=== PATIENT | female | born 1955 | race Caucasian/White ===

== ENCOUNTER 2024-07-10 19:37 | Inpatient (IN) ==
--- NOTE | 2024-07-10 19:59 | Emergency Department Note ---
History of Present Illness General Chief complaint: Leg Injury/Pain Stated complaint: CELLULITIS, REDNESS ON LEG Time Seen by Provider: 07/10/24 19:46 History of Present Illness Maximum Pain Intensity: 4 This is a 68-year-old female that presents to the emergency department via private vehicle referred by local [facility] with complaints of "left leg swelling, redness, pain". The patient notes chronic skin discoloration to the lower extremities and this is not new. However, as of last evening notes progressive worsening of left posterior calf erythema, edema and pain. No known trauma or injury. No fevers or chills. No nausea or vomiting. No chest pain or shortness of breath. Pain is worse with movement and palpation, mildly better with rest. No history of blood clot. Home Medications Medication Instructions Recorded Confirmed Type acetaminophen 650 mg 650 mg PO Q12H PRN Pain 07/10/24 07/10/24 History tablet,extended release lisinopril 10 0.5 tab PO DAILY 07/10/24 07/10/24 History mg-hydrochlorothiazide 12.5 mg tablet propranolol 60 mg tablet 60 mg PO QAM 07/10/24 07/10/24 History sumatriptan succinate 50 mg tablet 50 mg PO .SEEATTACHED PRN Migraine 07/10/24 07/10/24 History Headache Allergies Allergy/AdvReac Type Severity Reaction Status Date / Time No Known Allergies Allergy nka Verified 07/10/24 20:00 Past Med/Surg History Problem List (Updated 07/11/24 @ 00:45 by Cleveland Mosher PA-C) Leukocytosis (Acute) Cellulitis of left lower extremity (Acute) Social History Smoking Status: Never smoker Preferred Language: Vietnamese Feels Safe at Home: Yes Review of Systems A total of 10 systems reviewed and were otherwise negative Physical Exam Vital Signs Vital Signs - 24 hr 07/10/24 19:42 07/10/24 20:16 07/10/24 20:18 Temperature 36.3 C L Temperature Source Temporal Artery Scan Pulse Rate 108 H Pulse Rate from SpO2 Sensor Respiratory Rate 18 Respiratory Effort / Characteristics Non-Labored Spontaneous Respiratory Depth Normal Respiratory Pattern Regular Blood Pressure 158/83 H 109/66 Blood Pressure Mean 108 72 Blood Pressure Position Sitting Pulse Oximetry 98 97 Oxygen Delivery Method Room Air Room Air Sepsis Recent Fever Within 48 Hours No Sepsis New/Unexplained Change in Mental Status N/A Sepsis Action Taken by Nursing No Action Required 07/10/24 20:29 07/10/24 20:31 07/10/24 20:31 Temperature Temperature Source Pulse Rate 108 H Pulse Rate from SpO2 Sensor Respiratory Rate Respiratory Effort / Characteristics Respiratory Depth Respiratory Pattern Blood Pressure 122/74 122/74 Blood Pressure Mean 99 99 Blood Pressure Position Pulse Oximetry Oxygen Delivery Method Sepsis Recent Fever Within 48 Hours Sepsis New/Unexplained Change in Mental Status Sepsis Action Taken by Nursing 07/10/24 20:31 07/10/24 20:31 07/10/24 20:31 Temperature Temperature Source Pulse Rate Pulse Rate from SpO2 Sensor Respiratory Rate Respiratory Effort / Characteristics Respiratory Depth Respiratory Pattern Blood Pressure 122/74 122/74 122/74 Blood Pressure Mean 99 99 99 Blood Pressure Position Pulse Oximetry Oxygen Delivery Method Sepsis Recent Fever Within 48 Hours Sepsis New/Unexplained Change in Mental Status Sepsis Action Taken by Nursing 07/10/24 20:31 07/10/24 20:31 07/10/24 20:31 Temperature Temperature Source Pulse Rate Pulse Rate from SpO2 Sensor Respiratory Rate Respiratory Effort / Characteristics Respiratory Depth Respiratory Pattern Blood Pressure 122/74 122/74 122/74 Blood Pressure Mean 99 99 99 Blood Pressure Position Pulse Oximetry Oxygen Delivery Method Sepsis Recent Fever Within 48 Hours Sepsis New/Unexplained Change in Mental Status Sepsis Action Taken by Nursing 07/10/24 20:31 07/10/24 20:31 07/10/24 20:31 Temperature Temperature Source Pulse Rate Pulse Rate from SpO2 Sensor Respiratory Rate Respiratory Effort / Characteristics Respiratory Depth Respiratory Pattern Blood Pressure 122/74 122/74 122/74 Blood Pressure Mean 99 99 99 Blood Pressure Position Pulse Oximetry Oxygen Delivery Method Sepsis Recent Fever Within 48 Hours Sepsis New/Unexplained Change in Mental Status Sepsis Action Taken by Nursing 07/10/24 20:31 07/10/24 20:45 07/10/24 21:54 Temperature Temperature Source Pulse Rate 105 H 101 H Pulse Rate from SpO2 Sensor 105 H 100 H Respiratory Rate 20 18 Respiratory Effort / Characteristics Respiratory Depth Respiratory Pattern Blood Pressure 122/74 Blood Pressure Mean 99 Blood Pressure Position Pulse Oximetry 98 98 Oxygen Delivery Method Sepsis Recent Fever Within 48 Hours Sepsis New/Unexplained Change in Mental Status Sepsis Action Taken by Nursing 07/10/24 22:00 07/10/24 22:30 07/10/24 23:00 Temperature Temperature Source Pulse Rate 110 H 103 H 103 H Pulse Rate from SpO2 Sensor 104 H 102 H Respiratory Rate 17 19 23 Respiratory Effort / Characteristics Respiratory Depth Respiratory Pattern Blood Pressure 103/78 127/79 130/82 Blood Pressure Mean 86 95 98 Blood Pressure Position Pulse Oximetry 100 97 99 Oxygen Delivery Method Room Air Room Air Room Air Sepsis Recent Fever Within 48 Hours Sepsis New/Unexplained Change in Mental Status Sepsis Action Taken by Nursing 07/10/24 23:01 07/10/24 23:15 07/10/24 23:30 Temperature Temperature Source Pulse Rate 99 H 99 H Pulse Rate from SpO2 Sensor 100 H 100 H Respiratory Rate 21 16 Respiratory Effort / Characteristics Respiratory Depth Respiratory Pattern Blood Pressure 130/82 Blood Pressure Mean 104 Blood Pressure Position Pulse Oximetry 97 98 Oxygen Delivery Method Room Air Room Air Sepsis Recent Fever Within 48 Hours Sepsis New/Unexplained Change in Mental Status Sepsis Action Taken by Nursing 07/11/24 00:00 07/11/24 00:15 Temperature Temperature Source Pulse Rate 100 H Pulse Rate from SpO2 Sensor Respiratory Rate 21 Respiratory Effort / Characteristics Respiratory Depth Respiratory Pattern Blood Pressure 132/81 Blood Pressure Mean 97 Blood Pressure Position Pulse Oximetry 96 Oxygen Delivery Method Room Air Room Air Sepsis Recent Fever Within 48 Hours Sepsis New/Unexplained Change in Mental Status Sepsis Action Taken by Nursing VITAL SIGNS - Vital signs and nursing notes were reviewed. Mother tachycardic at 108, otherwise stable and afebrile. GENERAL - 68-year-old female appearing her stated age who is in no acute distress. Communicates well with provider and answers questions appropriately. SKIN -chronic light brown discoloration to the bilateral lower extremities noted. However on the left lower extremity, posterior aspect there is erythema noted that tracks proximally into the mid and proximal left calf region. This area is edematous and increased warmth compared to the remainder of the extremity in the right lower extremity. No wounds. No fluctuance or crepitus. HEAD - NC/AT. EYES - PERRL with EOMI bilaterally. Sclera anicteric. EARS - No deformities of external structures noted on gross examination bilaterally. NOSE - Midline and without cyanosis. No epistaxis or purulent drainage noted. MOUTH/OROPHARYNX - Without perioral cyanosis. NECK - Neck with FROM. No nuchal rigidity. LUNGS - CTA CARDIAC - RRR EXTREMITIES - No clubbing or peripheral cyanosis. Skin as above. Left calf tender. There is no palpable cord. +5/5 strength noted in UE/LE bilaterally. bilateral dorsalis pedis pulses within normal limits. NEUROLOGIC - Cranial nerves II through XII grossly intact. PSYCH -alert, oriented and pleasant on exam Course Administered Medications Discontinued Medications Ceftriaxone Sodium (Rocephin) 2,000 mg in 50 mls @ 100 mls/hr IV NOW STA Stop: 07/10/24 22:09 Last Infusion: 07/10/24 22:47 Dose: Infused Documented By: Admin: 07/10/24 22:00 Dose: 100 mls/hr Documented By: EMANUEL Vancomycin HCl 1,500 mg/ (Sodium Chloride) 530 mls @ 200 mls/hr IV NOW ONE Stop: 07/11/24 00:18 Last Admin: 07/10/24 22:58 Dose: 200 mls/hr Documented By: EMANUEL Medical Decision Making Laboratory Data 07/10/24 20:04 07/10/24 20:04 Lab Results 07/10/24 Range/Units 20:04 WBC 14.98 H (4.8-10.8) K/ul RBC 4.56 (4.20-5.40) M/uL Hgb 13.5 (12.0-16.0) g/dl Hct 40.7 (37.0-47.0) % MCV 89.3 (80.0-100.0) fL MCH 29.6 (25.0-34.0) pg MCHC 33.2 (32.0-36.0) g/dL RDW Std Deviation 42.2 (36.4-46.3) fL RDW Coeff of Sandra 12.9 (11.5-14.5) % Plt Count 271 (130-400) K/uL MPV 8.7 L (9.4-12.4) fL Immature Gran % (Auto) 0.4 % Neut % (Auto) 75.1 % Lymph % (Auto) 13.2 % [place] % (Auto) 8.2 % Eos % (Auto) 2.8 % Baso % (Auto) 0.3 % Neut # (Auto) 11.24 H (1.40-6.50) K/uL Lymph # (Auto) 1.98 (1.20-3.40) K/uL [place] # (Auto) 1.23 H (0.11-0.59) K/uL Eos # (Auto) 0.42 (0.00-0.50) K/uL Baso # (Auto) 0.05 (0.00-0.20) K/uL Immature Gran # (Auto) 0.06 (0.01-0.20) K/uL PT 11.0 (9.0-12.0) Seconds INR 1.0 (0.9-1.1) APTT 25 (21-31) Seconds PTT Ratio 0.9 Sodium 138 (136-145) mmol/L Potassium 3.9 (3.5-5.1) mmol/L Chloride 101 (98-107) mmol/L Carbon Dioxide 28 (21-32) mmol/L Anion Gap 9 (3-11) BUN 13 (6-23) mg/dl Creatinine 0.77 (0.6-1.2) mg/dl Est Cr Clr Drug Dosing 73.3 ml/min eGFR 85.02 BUN/Creatinine Ratio 16.9 (10-20) Glucose 110 H (70-99(Fasting)) mg/dl Calcium 9.5 (8.6-10.3) mg/dl Total Bilirubin 0.7 (0.2-1.0) mg/dl AST 21 (13-39) U/L ALT 13 (7-52) U/L Alkaline Phosphatase 100 (34-104) U/L Total Protein 7.1 (6.0-8.3) gm/dl Albumin 4.4 (3.4-5.0) gm/dl Globulin 2.7 (2.5-4.0) gm/dl Albumin/Globulin Ratio 1.6 (0.9-2) Procalcitonin < 0.02 (0-0.5) ng/ml Imaging Data Radiologist's Impression: Venous Doppler Study 07/10/24 19:54 Exam(s): US VENOUS LEFT LOWER EXTREMITY EXAM: US Duplex Left Lower Extremity Veins CLINICAL HISTORY: Reason for exam: L leg erythema, edema, pain. TECHNIQUE: Real-time duplex ultrasound scan of the left lower extremity veins integrating B-mode two-dimensional vascular structure, Doppler spectral analysis, color flow Doppler imaging and compression. COMPARISON: No relevant prior studies available. FINDINGS: Deep veins: Unremarkable. No DVT in the visualized common femoral, femoral, proximal deep femoral or popliteal veins. The veins demonstrate normal color flow, are normally compressible, with normal phasic flow and/or augmentation response. Superficial veins: Unremarkable. No thrombus in the visualized great saphenous vein. Soft tissues: No acute findings. IMPRESSION: No evidence of acute DVT. Electronically signed by: Yulia Bill M.D. 07/10/24 23:37 PM MDM Narrative Patient was seen and evaluated as above in room B10. Review was performed of triage nursing notes and vital signs. Patient presents to us today for evaluation of left lower extremity erythema, edema and pain. There is erythema and edema to the left posterior calf. No evidence of neurovascular compromise. Options of care were discussed with the patient. She is mildly tachycardic on arrival, leukocytosis 14.98. No anemia. Coags normal. No emergent metabolic disturbance. Procalcitonin negative. Blood culture pending. Doppler study negative for DVT. There is an enlarged lymph node in the left groin per my interpretation. I do suspect cellulitis. IV ceftriaxone plus vancomycin ordered. I do believe that hospitalization is required at this time noting the patient's area of involvement of the cellulitis, tachycardia, leukocytosis, lymphadenopathy noted on ultrasound further indicating infection. Case discussed with the hospitalist service. Please refer to further documentation regarding her stay In the evaluation and treatment of this patient the following differential diagnoses were entertained: Cellulitis, abscess, necrotizing fasciitis, DVT, sprain, strain, among others Impression & Plan Cellulitis of left lower extremity, Leukocytosis Discharge Plan Visit Data Chief Complaint: Leg Injury/Pain Stated Complaint: CELLULITIS, REDNESS ON LEG ED Provider: Willy Paz ED Midlevel Provider: Cleveland Mosher Discharge Problem: Cellulitis of left lower extremity, Leukocytosis Patient Disposition: Admitted As Inpatient Condition: Good Discharge Instructions Interventions: ED Discharge Assessment Last Done: 07/11/24 00:15
[2024-07-10 20:20] LABS: Basophils # (auto) 0.05 K/uL (0.00-0.20); Basophils % (auto) 0.3 %; Eosinophils # (auto) 0.42 K/uL (0.00-0.50); Eosinophils % (auto) 2.8 %; Hematocrit (blood only) 40.7 % (37.0-47.0); Hemoglobin 13.5 g/dl (12.0-16.0); Immature Granulocytes # (auto) 0.06 K/uL (0.01-0.20); Immature Granulocytes % (auto) 0.4 %; Lymphocytes # (auto) 1.98 K/uL (1.20-3.40); Lymphocytes % (auto) 13.2 %; Mean Corpuscular Hemoglobin 29.6 pg (25.0-34.0); Mean Corpuscular Hgb Conc 33.2 g/dL (32.0-36.0); Mean Corpuscular Volume 89.3 fL (80.0-100.0); Mean Platelet Volume 8.7 fL (9.4-12.4); Monocytes # (auto) 1.23 K/uL (0.11-0.59); Monocytes % (auto) 8.2 %; Neutrophils # (auto) 11.24 K/uL (1.40-6.50); Neutrophils % (auto) 75.1 %; Platelet Count 271 K/uL (130-400); RDW Coefficient of Variation 12.9 % (11.5-14.5); RDW Standard Deviation 42.2 fL (36.4-46.3); Red Blood Count 4.56 M/uL (4.20-5.40); White Blood Count 14.98 K/ul (4.8-10.8)
[2024-07-10 20:36] LABS: Albumin Globulin Ratio 1.6 (0.9-2); Albumin Level 4.4 gm/dl (3.4-5.0); BUN Creatinine Ratio 16.9 (10-20); Bilirubin,Total 0.7 mg/dl (0.2-1.0); Calcium 9.5 mg/dl (8.6-10.3); Creatinine Clr Calc Pharmacy 73.3 ml/min; Globulin 2.7 gm/dl (2.5-4.0); Potassium 3.9 mmol/L (3.5-5.1); Total Protein 7.1 gm/dl (6.0-8.3)
[2024-07-10 20:47] LABS: Partial Thromboplastin Ratio 0.9; Partial Thromboplastin Time 25 Seconds (21-31)
[2024-07-10] MEDS ORDERED: VANCOMYCIN CONSULT ACTIVE PRN (21:40)
[2024-07-10] MEDS: cefTRIAXone SODIUM 2,000 MG/50 ML BAG IV STA (22:00)
[2024-07-10] MEDS: VANCOMYCIN HCL 1,500 MG in SODIUM CHLORIDE 0.9% 500 ML IV ONE (22:58)
--- NOTE | 2024-07-10 23:38 | Ultrasound Report ---
Exam(s): US VENOUS LEFT LOWER EXTREMITY EXAM: US Duplex Left Lower Extremity Veins CLINICAL HISTORY: Reason for exam: L leg erythema, edema, pain. TECHNIQUE: Real-time duplex ultrasound scan of the left lower extremity veins integrating B-mode two-dimensional vascular structure, Doppler spectral analysis, color flow Doppler imaging and compression. COMPARISON: No relevant prior studies available. FINDINGS: Deep veins: Unremarkable. No DVT in the visualized common femoral, femoral, proximal deep femoral or popliteal veins. The veins demonstrate normal color flow, are normally compressible, with normal phasic flow and/or augmentation response. Superficial veins: Unremarkable. No thrombus in the visualized great saphenous vein. Soft tissues: No acute findings. IMPRESSION: No evidence of acute DVT. Electronically signed by: Yulia Bill M.D. 07/10/24 23:37 PM
--- NOTE | 2024-07-11 00:11 | History & Physical Report ---
Date of Service July 10, 2024 Assessment & Plan (1) Cellulitis of left lower extremity: Plan: 68-year-old female with past medical history significant for restrictive lung disease due to kyphoscoliosis, stasis dermatitis of both legs, hypertension, history of benign neoplasm of colon, polymyalgia rheumatica, arthritis of both hips, history of migraine, generalized anxiety disorder presents with redness of the left lower extremity. Patient states last night she noticed redness in the left calf region. It was warm to touch. And has some pain in the left leg. Denies any fevers. Denies any chest pain or shortness of breath. No cough. No runny nose or sore throat. No headache. No abdominal pain. No nausea. Normal bowel and bladder movements. Hemodynamics are okay. Patient says she has history of cellulitis in the past. Cellulitis of left lower extremity Doppler negative for DVT ER empirically started Vanco and Rocephin which will be continued Will monitor for response. Hypertension Continue home medications Will monitor DVT prophylaxis Lovenox Disposition Medical floor Full code History of Present Illness Chief Complaint: Left leg cellulitis Primary Care Provider: Lori Cristina MD 68-year-old female with past medical history significant for restrictive lung di sease due to kyphoscoliosis, stasis dermatitis of both legs, hypertension, history of benign neoplasm of colon, polymyalgia rheumatica, arthritis of both hips, history of migraine, generalized anxiety disorder presents with redness of the left lower extremity. Patient states last night she noticed redness in the left calf region. It was warm to touch. And has some pain in the left leg. Denies any fevers. Denies any chest pain or shortness of breath. No cough. No runny nose or sore throat. No headache. No abdominal pain. No nausea. Normal bowel and bladder movements. Hemodynamics are okay. Patient says she has history of cellulitis in the past. Past medical history. As mentioned above Past surgical history. Colonoscopy. Colonoscopy with biopsy. EGD. Spine surgery. Social history. No smoking. No alcohol use. No drug use. Family history. Paternal grandfather had cancer. Mother had diabetes. Hypertension. Alzheimer's disease. Father had LA. Hypertension. Brother has hypertension. Sister has diabetes. Sister has hypertension. Allergies Allergy/AdvReac Type Severity Reaction Status Date / Time No Known Allergies Allergy nka Verified 07/10/24 20:00 Home Medications Medication Instructions Recorded Confirmed Type acetaminophen 650 mg 650 mg PO Q12H PRN Pain 07/10/24 07/10/24 History tablet,extended release lisinopril 10 0.5 tab PO DAILY 07/10/24 07/10/24 History mg-hydrochlorothiazide 12.5 mg tablet propranolol 60 mg tablet 60 mg PO QAM 07/10/24 07/10/24 History sumatriptan succinate 50 mg tablet 50 mg PO .SEEATTACHED PRN Migraine 07/10/24 07/10/24 History Headache Past Med/Surg History Problem List (Updated 07/11/24 @ 00:45 by Cleveland Mosher PA-C) Leukocytosis (Acute) Cellulitis of left lower extremity (Acute) Social History Smoking Status: Never smoker Second Hand Exposure: No; Do You Dip or Chew Tobacco: No; Tobacco Cessation Education Requested by Patient: No Hx Alcohol Use: No Hx Substance Use: No Preferred Language: Belarusian Communication Ability: Effective Childcare Worker Required: No Beliefs That Will Affect Care: None Current Living Situation: Alone Other Information That Helps Us Care for You: No Feels Safe at Home: Yes Safety Concerns: Feels Safe At This Time Assistive Devices: None Review of Systems Review of Systems: All systems reviewed & are unremarkable except as noted in HPI & below Physical Exam Physical Exam: General- Not in distress Head- atraumatic Eyes- PERRL. ENT- oropharynx clear Neck- supple, no JVD. Lungs- clear to auscultation no wheezing or crackles Heart- regular rate and rhythm; no murmur, no gallop. Abdomen- normal bowel sounds, soft, nontender, no distension Extremities- b/l lower extremity chronic skin changes seen. left posterior leg erythematous and warm to palpation Neuro- alert, oriented PERRL, no facial palsy; no dysarthria; moves extremities Results & Data Results & Data Vital Signs (Past 12 Hours) Vital Signs Temp Pulse Resp BP Pulse Ox O2 Del Method 07/10/24 23:00 103 H 23 130/82 99 Room Air 07/10/24 22:30 103 H 19 127/79 97 Room Air 07/10/24 22:00 110 H 17 103/78 100 Room Air 07/10/24 21:54 101 H 18 98 07/10/24 20:45 105 H 20 98 07/10/24 20:31 122/74 07/10/24 20:31 122/74 07/10/24 20:31 122/74 07/10/24 20:31 122/74 07/10/24 20:31 122/74 07/10/24 20:31 122/74 07/10/24 20:31 122/74 07/10/24 20:31 122/74 07/10/24 20:31 122/74 07/10/24 20:31 122/74 07/10/24 20:31 122/74 07/10/24 20:31 122/74 07/10/24 20:29 108 H 07/10/24 20:18 109/66 07/10/24 20:16 97 Room Air 07/10/24 19:42 36.3 C L 108 H 18 158/83 H 98 Room Air Diagnostic Findings Laboratory Results WBC 14.98 K/ul (4.8-10.8) H 07/10/24 20:04 RBC 4.56 M/uL (4.20-5.40) 07/10/24 20:04 Hgb 13.5 g/dl (12.0-16.0) 07/10/24 20:04 Hct 40.7 % (37.0-47.0) 07/10/24 20:04 MCV 89.3 fL (80.0-100.0) 07/10/24 20:04 MCH 29.6 pg (25.0-34.0) 07/10/24 20:04 MCHC 33.2 g/dL (32.0-36.0) 07/10/24 20:04 RDW Std Deviation 42.2 fL (36.4-46.3) 07/10/24 20:04 RDW Coeff of Sandra 12.9 % (11.5-14.5) 07/10/24 20:04 Plt Count 271 K/uL (130-400) 07/10/24 20:04 MPV 8.7 fL (9.4-12.4) L 07/10/24 20:04 Immature Gran % (Auto) 0.4 % 07/10/24 20:04 Neut % (Auto) 75.1 % 07/10/24 20:04 Lymph % (Auto) 13.2 % 07/10/24 20:04 [place] % (Auto) 8.2 % 07/10/24 20:04 Eos % (Auto) 2.8 % 07/10/24 20:04 Baso % (Auto) 0.3 % 07/10/24 20:04 Neut # (Auto) 11.24 K/uL (1.40-6.50) H 07/10/24 20:04 Lymph # (Auto) 1.98 K/uL (1.20-3.40) 07/10/24 20:04 [place] # (Auto) 1.23 K/uL (0.11-0.59) H 07/10/24 20:04 Eos # (Auto) 0.42 K/uL (0.00-0.50) 07/10/24 20:04 Baso # (Auto) 0.05 K/uL (0.00-0.20) 07/10/24 20:04 Immature Gran # (Auto) 0.06 K/uL (0.01-0.20) 07/10/24 20:04 PT 11.0 Seconds (9.0-12.0) 07/10/24 20:04 INR 1.0 (0.9-1.1) 07/10/24 20:04 APTT 25 Seconds (21-31) 07/10/24 20:04 PTT Ratio 0.9 07/10/24 20:04 Sodium 138 mmol/L (136-145) 07/10/24 20:04 Potassium 3.9 mmol/L (3.5-5.1) 07/10/24 20: Chloride 101 mmol/L (98-107) 07/10/24 20:04 Carbon Dioxide 28 mmol/L (21-32) 07/10/24 20:04 Anion Gap 9 (3-11) 07/10/24 20:04 BUN 13 mg/dl (6-23) 07/10/24 20:04 Creatinine 0.77 mg/dl (0.6-1.2) 07/10/24 20:04 Est Cr Clr Drug Dosing 73.3 ml/min 07/10/24 20:04 eGFR 85.02 07/10/24 20:04 BUN/Creatinine Ratio 16.9 (10-20) 07/10/24 20:04 Glucose 110 mg/dl (70-99(Fasting)) H 07/10/24 20:04 Calcium 9.5 mg/dl (8.6-10.3) 07/10/24 20:04 Total Bilirubin 0.7 mg/dl (0.2-1.0) 07/10/24 20:04 AST 21 U/L (13-39) 07/10/24 20:04 ALT 13 U/L (7-52) 07/10/24 20:04 Alkaline Phosphatase 100 U/L (34-104) 07/10/24 20:04 Total Protein 7.1 gm/dl (6.0-8.3) 07/10/24 20:04 Albumin 4.4 gm/dl (3.4-5.0) 07/10/24 20:04 Globulin 2.7 gm/dl (2.5-4.0) 07/10/24 20:04 Albumin/Globulin Ratio 1.6 (0.9-2) 07/10/24 20:04 Procalcitonin < 0.02 ng/ml (0-0.5) 07/10/24 20:04 Impressions Venous Doppler Study 07/10/24 19:54 Exam(s): US VENOUS LEFT LOWER EXTREMITY EXAM: US Duplex Left Lower Extremity Veins CLINICAL HISTORY: Reason for exam: L leg erythema, edema, pain. TECHNIQUE: Real-time duplex ultrasound scan of the left lower extremity veins integrating B-mode two-dimensional vascular structure, Doppler spectral analysis, color flow Doppler imaging and compression. COMPARISON: No relevant prior studies available. FINDINGS: Deep veins: Unremarkable. No DVT in the visualized common femoral, femoral, proximal deep femoral or popliteal veins. The veins demonstrate normal color flow, are normally compressible, with normal phasic flow and/or augmentation response. Superficial veins: Unremarkable. No thrombus in the visualized great saphenous vein. Soft tissues: No acute findings. IMPRESSION: No evidence of acute DVT. Electronically signed by: Yulia Bill M.D. 07/10/24 23:37 PM Code Status & VTE Plan VTE Prophylaxis Plan VTE Prophylaxis will be ordered: Yes
--- NOTE | 2024-07-11 00:28 | Emergency Department Note ---
ED Visit Note I was consulted by the Advanced Practice Provider, Cleveland Mosher PA-C. I personally made/approved the management plan and take responsibility for the patient management. I performed a substantive portion of the visit. This includes the aspects of: -History/Physical/Personally seeing the patient -MDM .
[2024-07-11] MEDS ORDERED: POLYETHYLENE (MIRALAX) 17 GM PACK PO PRN (00:53)
[2024-07-11] MEDS: SODIUM CHLORIDE 0.9% 1,000 ML IV SCH (02:01)
[2024-07-11] MEDS: ENOXAPARIN INJ 40 MG/0.4 ML SYR SQ SCH (02:46)
[2024-07-11] MEDS: VANCOMYCIN HCL 1,000 MG/270 ML BAG IV SCH (05:50)
[2024-07-11 05:52] LABS: Basophils # (auto) 0.03 K/uL (0.00-0.20); Basophils % (auto) 0.3 %; Eosinophils # (auto) 0.22 K/uL (0.00-0.50); Eosinophils % (auto) 2.4 %; Hematocrit (blood only) 33.7 % (37.0-47.0); Hemoglobin 11.2 g/dl (12.0-16.0); Immature Granulocytes # (auto) 0.03 K/uL (0.01-0.20); Immature Granulocytes % (auto) 0.3 %; Lymphocytes % (auto) 18.5 %; Mean Corpuscular Hemoglobin 29.5 pg (25.0-34.0); Mean Corpuscular Hgb Conc 33.2 g/dL (32.0-36.0); Mean Corpuscular Volume 88.7 fL (80.0-100.0); Mean Platelet Volume 8.7 fL (9.4-12.4); Monocytes # (auto) 0.77 K/uL (0.11-0.59); Monocytes % (auto) 8.4 %; Neutrophils # (auto) 6.45 K/uL (1.40-6.50); Neutrophils % (auto) 70.1 %; Platelet Count 188 K/uL (130-400); RDW Coefficient of Variation 12.9 % (11.5-14.5); RDW Standard Deviation 42.1 fL (36.4-46.3)
[2024-07-11 06:10] LABS: BUN Creatinine Ratio 17.2 (10-20); Calcium 8.4 mg/dl (8.6-10.3); Creatinine Clr Calc Pharmacy 97.3 ml/min; Magnesium 1.7 mg/dl (1.7-2.4); Potassium 3.3 mmol/L (3.5-5.1)
[2024-07-11] MEDS: ACETAMINOPHEN 325 MG TAB PO PRN (07:25)
[2024-07-11] MEDS: POTASSIUM CHLORIDE CRTAB 20 MEQ TABCR PO STA (07:25)
[2024-07-11] MEDS: PROPRANOLOL HCL 20 MG TAB PO SCH (07:26)
--- NOTE | 2024-07-11 07:57 | Hospitalist Progress Note ---
Date of Service July 11, 2024 Assessment & Plan (1) Cellulitis of left lower extremity: Plan: 68 yo F with past medical history significant for restrictive lung disease due to kyphoscoliosis, stasis dermatitis of both legs, hypertension, history of benign neoplasm of colon, polymyalgia rheumatica, arthritis of both hips, history of migraine, generalized anxiety disorder presents with redness of the left lower extremity. Patient states last night she noticed redness in the left calf region. It was warm to touch. And has some pain in the left leg. Denies any fevers. Denies any chest pain or shortness of breath. No cough. No runny nose or sore throat. No headache. No abdominal pain. No nausea. Normal bowel and bladder movements. Hemodynamics are okay. Patient says she has history of cellulitis in the past. Cellulitis of left lower extremity Doppler negative for DVT ER empirically started Vanco and Rocephin which will be continued WBC down to 9K today, monitor CBC Will monitor for response. Discussed w/ RN -will pallavi the area of erythema to monitor closely Hypertension Continue home propranolol - hold lisinopril- HCTZ for now Will monitor Hypokalemia, Hypomagnesemia - replace K and Mag, and monitor DVT prophylaxis Lovenox Disposition Medical floor Full code Admission and Anticipated Discharge Date Admission Date: July 10, 2024 Subjective Pt seen in follow up of LE cellulitis Lying in bed in [facility] denies fever, chills, chest pain, shortness of breath pt is a poor historian, not clear if leg feels much improved Discussed w/ RN - will pallavi the area of erythema so we can monitor more closely Review of Systems Review of Systems: All systems reviewed & are unremarkable except as noted in Subjective Physical Exam Physical Exam: General- WD/WN F in NAD Head- atraumatic Eyes- PERRL. Neck- supple, no JVD. Lungs- clear to auscultation no wheezing or crackles Heart- regular rate and rhythm; no murmur Abdomen- normal bowel sounds, soft, nontender, no distension Extremities- b/l lower extremity chronic skin changes seen. left posterior leg erythematous and warm to palpation Neuro- alert, oriented PERRL, no facial palsy; no dysarthria; moves extremities Results & Data Results & Data Vital Signs (Past 12 Hours) Vital Signs Temp Pulse Pulse Resp BP BP Pulse Ox 07/11/24 07:45 36.8 C 100 H 16 123/70 95 07/11/24 02:50 36.5 C 16 114/71 99 07/11/24 00:53 36.5 C 16 114/71 99 07/11/24 00:15 07/11/24 00:00 100 H 21 132/81 96 07/10/24 23:30 99 H 16 98 07/10/24 23:15 99 H 21 97 07/10/24 23:01 130/82 07/10/24 23:00 103 H 23 130/82 99 07/10/24 22:30 103 H 19 127/79 97 07/10/24 22:00 110 H 17 103/78 100 07/10/24 21:54 101 H 18 98 07/10/24 20:45 105 H 20 98 07/10/24 20:31 122/74 07/10/24 20:31 122/74 07/10/24 20:31 122/74 07/10/24 20:31 122/74 07/10/24 20:31 122/74 07/10/24 20:31 122/74 07/10/24 20:31 122/74 07/10/24 20:31 122/74 07/10/24 20:31 122/74 07/10/24 20:31 122/74 07/10/24 20:31 122/74 07/10/24 20:31 122/74 07/10/24 20:29 108 H 07/10/24 20:18 109/66 07/10/24 20:16 97 O2 Del Method 07/11/24 07:45 Room Air 07/11/24 02:50 Room Air 07/11/24 00:53 Room Air 07/11/24 00:15 Room Air 07/11/24 00:00 Room Air 07/10/24 23:30 Room Air 07/10/24 23:15 Room Air 07/10/24 23:01 07/10/24 23:00 Room Air 07/10/24 22:30 Room Air 07/10/24 22:00 Room Air 07/10/24 21:54 07/10/24 20:45 07/10/24 20:31 07/10/24 20:31 07/10/24 20:31 07/10/24 20:31 07/10/24 20:31 07/10/24 20:31 07/10/24 20:31 07/10/24 20:31 07/10/24 20:31 07/10/24 20:31 07/10/24 20:31 07/10/24 20:31 07/10/24 20:29 07/10/24 20:18 07/10/24 20:16 Room Air Laboratory Results 07/11/24 07/10/24 Range/Units 05:36 20:04 WBC 9.20 14.98 H (4.8-10.8) K/ul RBC 3.80 L 4.56 (4.20-5.40) M/uL Hgb 11.2 L 13.5 (12.0-16.0) g/dl Hct 33.7 L 40.7 (37.0-47.0) % MCV 88.7 89.3 (80.0-100.0) fL MCH 29.5 29.6 (25.0-34.0) pg MCHC 33.2 33.2 (32.0-36.0) g/dL RDW Std Deviation 42.1 42.2 (36.4-46.3) fL RDW Coeff of Sandra 12.9 12.9 (11.5-14.5) % Plt Count 188 271 (130-400) K/uL MPV 8.7 L 8.7 L (9.4-12.4) fL Immature Gran % (Auto) 0.3 0.4 % Neut % (Auto) 70.1 75.1 % Lymph % (Auto) 18.5 13.2 % [place] % (Auto) 8.4 8.2 % Eos % (Auto) 2.4 2.8 % Baso % (Auto) 0.3 0.3 % Neut # (Auto) 6.45 11.24 H (1.40-6.50) K/uL Lymph # (Auto) 1.70 1.98 (1.20-3.40) K/uL [place] # (Auto) 0.77 H 1.23 H (0.11-0.59) K/uL Eos # (Auto) 0.22 0.42 (0.00-0.50) K/uL Baso # (Auto) 0.03 0.05 (0.00-0.20) K/uL Immature Gran # (Auto) 0.03 0.06 (0.01-0.20) K/uL PT 11.0 (9.0-12.0) Seconds INR 1.0 (0.9-1.1) APTT 25 (21-31) Seconds PTT Ratio 0.9 Sodium 137 138 (136-145) mmol/L Potassium 3.3 L 3.9 (3.5-5.1) mmol/L Chloride 109 H 101 (98-107) mmol/L Carbon Dioxide 27 28 (21-32) mmol/L Anion Gap 1 L 9 (3-11) BUN 10 13 (6-23) mg/dl Creatinine 0.58 L 0.77 (0.6-1.2) mg/dl Est Cr Clr Drug Dosing 97.3 73.3 ml/min eGFR 99.74 85.02 BUN/Creatinine Ratio 17.2 16.9 (10-20) Glucose 93 110 H (70-99(Fasting)) mg/dl Calcium 8.4 L 9.5 (8.6-10.3) mg/dl Magnesium 1.7 (1.7-2.4) mg/dl Total Bilirubin 0.7 (0.2-1.0) mg/dl AST 21 (13-39) U/L ALT 13 (7-52) U/L Alkaline Phosphatase 100 (34-104) U/L Total Protein 7.1 (6.0-8.3) gm/dl Albumin 4.4 (3.4-5.0) gm/dl Globulin 2.7 (2.5-4.0) gm/dl Albumin/Globulin Ratio 1.6 (0.9-2) Procalcitonin < 0.02 (0-0.5) ng/ml Medications Administered Current Inpatient Medications Acetaminophen (Acetaminophen 325 Mg Tab) 650 mg PO Q4H PRN PRN Reason: pain/fever Stop: 08/10/24 00:52 Last Admin: 07/11/24 07:25 Dose: 650 mg Enoxaparin Sodium (Enoxaparin Inj 40 Mg/0.4 Ml Syr) 40 mg SQ PM KAREN Stop: 08/10/24 00:52 Last Admin: 07/11/24 02:46 Dose: 40 mg Lisinopril/HCTZ (Lisinopril/Hctz 5mg Tab) 0.5 tab PO DAILY [facility] Stop: 08/10/24 08:59 Sodium Chloride (Nss) 1,000 mls @ 80 mls/hr IV .[id number] KAREN Stop: 07/11/24 13:22 Last Admin: 07/11/24 02:01 Dose: 80 mls/hr Ceftriaxone Sodium (Rocephin) 2,000 mg in 50 mls @ 100 mls/hr IV Q24H KAREN Stop: 07/18/24 20:59 Vancomycin HCl (Vancomycin Hcl) 1,000 mg in 270 mls @ 200 mls/hr IV Q12H [facility] Stop: 07/18/24 05:59 Last Infusion: 07/11/24 07:14 Dose: Infused Miscellaneous Information (Vancomycin Consult Active) 1 each N/A UD PRN PRN Reason: Consult Stop: 08/09/24 21:39 Polyethylene Glycol (Polyethylene (Miralax) 17 Gm Pack) 17 gm PO DAILY PRN PRN Reason: Constipation Stop: 08/10/24 00:52 Propranolol HCl (Propranolol Hcl 20 Mg Tab) 60 mg PO QAM [facility] Stop: 08/10/24 08:59 Last Admin: 07/11/24 07:26 Dose: 60 mg
--- OUTSIDE RECORDS SUMMARY | 2024-07-11 07:58 | External Medical Summary | Summary of Care ---
Author Name Unknown Organization [facility] Address [address] [place] [address] Phone [phone] Care Team Providers Care Certified Ophthalmic Technician Name Role Phone Lori Cristina MD Primary Care Provider Reason for Visit * Reason Onset Date Comments Health Maintenance 07/08/2024 Encounter Details Date Type Department Care Team (Late st Contact Info) Description 07/08/2024 Telephone Family Practice [facility] [address] [facility] [address] Lori Cristina MD [address] [facility] [place] [address] Health Maintenance Allergies No known active allergiesdocumented as of this encounter (statuses as of 07/08/2024) Medications ONE DAILY COMPLETE PO TABS one daily 0 0 6 Active CALCIUM + D 600-200 MG-UNIT PO TABS 1 twice daily Active ALPRAZolam 0.25 MG Oral Tablet (xaNAX)Indicatio ns:Generalized anxiety disorder One pill by mouth 3 times a day as needed for anxiety 30 Tab 1 1 Active Betamethasone Dipropionate Aug 0.05 % External Ointment (Diprolene AF)Indications:I ntrinsic atopic dermatitis Apply topically to affected area 2 times a day. To affected area. 15 g 3 Active Triamcinolone Acetonide 0.1 % External Cream (Aristocort) Apply to lower legs twice daily. 80 g 5 4 Active Additional Information Patient not taking.Reported on 08/08/2023 Diclofenac Sodium 1 % External Gel (Voltaren)Indica tions:Arthritis of knee Apply topically to affected area daily as needed for Pain, Moderate. 100 g 4 Active Lisinopril-hydro CHLOROthiazide 10-12.5 MG Oral TabletIndication s:HTN, goal below 130/80 TAKE 1/2 TABLET BY MOUTH DAILY 45 Tablet 3 4 Active SUMAtriptan Succinate 50 MG Oral Tablet (Imitrex)Indicat ions:Migraine with aura and with status migrainosus, not intractable TAKE 1 TABLET EVERY 2 HOURS NEEDED FOR MIGRAINE 9 Tablet 2 4 Active Propranolol HCl 60 MG Oral Tablet (Inderal)Indicat ions:Migraine variant TAKE 1 TABLET BY MOUTH EVERY DAY IN THE MORNING 90 Tablet 1 4 Active documented as of this encounter (statuses as of 07/08/2024) Active Problems Problem Noted Date Diagnosed Date PMR (polymyalgia rheumatica) 11/17/2020 Essential hypertension with goal blood pressure less than 140/90 02/18/2016 Restrictive lung disease due to kyphoscoliosis 0 06/23/2015 Stasis dermatitis of both legs 11/07/2012 Generalized anxiety disorder 06/19/2009 Benign neoplasm of colon 01/26/2009 Overview (01/27/2009): hyperplastic/repeat colnooscopyi n 3-5 yrs CLASSICAL MIGRAINE WITHOU MENTION OF INTRACTABLE MIGRAINE 10/08/1999 Arthritis of both hips Overview (01/27/2015): mild to moderate 2014 documented as of this encounter (statuses as of 07/08/2024) Resolved Problems Problem Noted Date Diagnosed Date Resolved Date Occupational exposure in workplace 04/06/2016 04/22/2021 ASHRAF (dyspnea on exertion) 02/22/2016 Weight gain 02/22/2016 11/18/2016 Localized edema 02/22/2016 11/18/2016 Bronchitis, complicated 09/04/201310/30 Cystocele, midline 07/15/2011 6 Bunion 07/15/2011 08/18/2015 Acute gastric ulcer without mention of hemorrhage, perforation, or obstruction 06/18/2008 08/18/2015 ADVANCE DIRECTIVE INFORMATION 01/09/2006 03/04/2024 Overview (01/09/2006): Information given to patient. Lump or mass in breast 06/17/200406/18 Other disorder of menstruati on and other abnormal bleeding from female genital tract 01/09/2002 06/18/2008 FAM HX-DIABETES MELLITUS 10/09/2000 Mitral valve disorder 10/08/19992015 documented as of this encounter (statuses as of 07/08/2024) Immunizations Name Administration Dates Next Due COVID-19 mRNA, LNP-s, No Pre serve, 2-Dose Series (Moderna) 09/19/2020,08/22/2020 Pneumococcal Conjugate Vacci ne, 20-valent ([id number]) 05/15/2023,02/07/2022 Pneumococcal Polysaccharide PPV23 (Pneumovax) 08/18/2015 RSV Vac., Recomb, Adjuvant, PF,0.5 Ml (Arexvy) 05/08/2023 Seasonal Influenza Vac., MDV , IM, 0.5 mL (Fluzone) 01/27/2014,01/16/2013,01/24/2012,01/18,01/15/2009 Seasonal Influenza, PF, 6 M & above, IM , (FluLaval or Fluzone) 02/07/2022,01/28/2021,02/06/2020,12/27,02/26/2018,02/21/2017 Seasonal Influenza, Quadriva lent Hd (Fluzone Hd) 05/08/2023 Seasonal Influenza, Quadriva lent, No Preserve, IM 02/18/2016,01/27/2015 TD, Preservative Free 02/28/2019 TDAP, Age 7 and older, IM (Adacel) 01/15/2009 Varicella Zoster Vaccine (Adult) 01/27/2015 Zoster Vaccine Recombinant (Shingrix) 05/15/2023 ,05/15/2020,02/06/2020 documented as of this encounter Social History Tobacco Use Types Packs/Day Years Used Date Smoking Tobacco: Never Smokeless Tobacco: Never Alcohol Use Standard Drinks/Week Comments No 0 (1 standard drink = 0.6 oz pur e alcohol) PHQ-2 Answer Date Recorded PHQ Adult Total Score 9 07/22/2021 Hunger Vital Sign Answer Date Recorded Worried About Running Out of Food in the Last Ye ar Never true 02/28/2019 Ran Out of Food in the Last Year Never true 02/28/2019 Comments No Sex and Gender Information Value Date Recorded Sex Assigned at Not on file Legal Sex Female 5:05 AM EST Gender Identity Not on file Sexual Orientation Not on file Occupation Industry Job Start Date Job End Date Not on file Not on file Not on file Not on file documented as of this encounter Miscellaneous Notes * Telephone Encounter - Sarah Donald LPN - 07/08/2024 9:09 AM EDT Care Gaps Comprehensive Care Outreach Last Office/Telemedicine Visit: 08/08/2023 (in office), Visit date not found (telemedicine) Next Office Visit: Visit date not found Hemoglobin AIC Results: Lab Results Component Value Date/Time HEMOGLOBIN A1C - [facility] 5.7 08/03/2007 01:02 PM BP Readings from Last 1 Encounters: 08/08/23 118/70 Reviewed Health Maintenance below: Health Maintenance Topic Date Due Depression Screening 07/22/2022 Influenza Vaccine (FLU shot) (1) 12/31/2023 COVID-19 Vaccine ( season) 2023 Colorectal Cancer Screening 05/05/2024 GFR 06/30/2024 Mammogram 08/10/2024 Mamm Zeinab Colon 10 year Ov lab Care Gap Outreach Action Taken: Left message and MyChart message sent documented in this encounter Plan of Treatment Scheduled Procedures Name Priority Associated Diagnoses Date/Ti me COLONOSCOPY FLEXIBLE PROXIMA L DIAGNOSTIC Recall Personal history of colonic polyps Health Maintenance Due Date Last Done Comments Cologuard 2002 Fecal Occult Blood Test 2002 Sigmoidoscopy 2002 Depression Screening 07/22/2022 07/22/2021 COVID-19 Vaccine ( season) 2023 09/19/2020, 08/22/2020 Influenza Vaccine (FLU shot) (#1) 2023 05/08/2023, 02/07/2022, 01/28/2021, Additional history exists Colonoscopy 05/05/2024 05/05/2014, 08/2014, 01/26/2009 Colorectal Cancer Screening 05/05/2024 GFR 06/30/2024 07/01/2023, 12/31, 10/30/2020, Additional history exists Mammogram 08/10/2024 08/11/2023, 06/01, 02/17/2021, Additional history exists Albumin/Creatinine Ratio 06/30/2026 07/01/2023, 12/31 Diabetes Screening 06/30/2026 07/01/2023, 0 01/20/2022, 10/30/2020, Additional history exists Lipid Panel 06/30/2028 07/01/2023, 04/01, 02/18/2016, Additional history exists DXA Scan 09/01/2028 09/01/2021 DTap/Tdap Vaccines (3 - Td or Tdap) 02/28/2029 02/28/2019, 01/15/2009, 08/01/2003 Pap Smear Discontinued 06/21/2022, 01/31, 02/18/2016, Additional history exists Pneumococcal Vaccine: 50+ Years Completed 05/15/2023, 02/07/2022, 08/18/2015 Zoster Vaccines Completed 05/15/2023, 05/01, 02/06/2020, Additional history exists HPV (Gardasil) Vaccine Aged Out No lo nger eligible based on patient's age to complete this topic Hepatitis B Vaccine Aged Out No longe r eligible based on patient's age to complete this topic MENINGOCOCCAL (MENACTRA/MENVEO) Aged Out No longer eligible based on patient's age to complete this topic Meningitis B Vaccine (Bexsero/Trumemba) Aged Out No longer eligible based on patient's age to complete this topic documented as of this encounter Medical Devices Not on filedocumented as of this encounter Care Teams Certified Ophthalmic Technician Relationship Specialty Start Date End Date Lori Cristina MD [address] [place] [id number] PCP - General Internal Medicine 04/16/21 documented as of this encounter
--- NOTE | 2024-07-11 08:52 | Pharmacy Report ---
Pharmacy PK ABX Note - Date of Service July 11, 2024 - Assessment and Plan Assessment 68 year old F receiving ceftriaxone/vancomycin for treatment of cellulitis of lower left extremity. Pertinent microbiologic data includes: blood cultures pending. Day # 1 of antimicrobial therapy. Plan Vancomycin * Loading dose: 1500 mg IV x 1 * Maintenance dose: 1000 mg IV every 12 hours * Regimen is predicted to achieve target AUC/CAROLINA of 400-600 mg/L.hr * Random level ordered for: 07/12/24 with AM labs Pharmacy will continue to follow and will adjust dose/frequency as necessary. Thank you. Pharmacy has transitioned to AUC monitoring for vancomycin. AUC/CAROLINA is the preferred PK/PD target and is associated with decreased risk of nephrotoxicity compared to traditional trough targets.
[2024-07-11] MEDS ORDERED: LISINOPRIL/HCTZ 10/12.5MG TAB PO SCH (09:00)
[2024-07-11] MEDS: MAGNESIUM OXIDE 400 MG TAB PO SCH (09:36)
[2024-07-11] MEDS: PNEUMOCOCCAL VACCINE (PCV20) 20-VAL CONJ-DIP CRM/PF 0.5 ML SYR IM ONE (09:41)
[2024-07-11] MEDS: cefTRIAXone SODIUM 2,000 MG/50 ML BAG IV SCH (20:18)
[2024-07-12] MEDS: VANCOMYCIN LEVEL ONE (05:25)
[2024-07-12 05:59] LABS: Hematocrit (blood only) 36.2 % (37.0-47.0); Hemoglobin 11.6 g/dl (12.0-16.0); Mean Corpuscular Hemoglobin 28.7 pg (25.0-34.0); Mean Corpuscular Volume 89.6 fL (80.0-100.0); Mean Platelet Volume 8.7 fL (9.4-12.4); Platelet Count 198 K/uL (130-400); RDW Coefficient of Variation 13.1 % (11.5-14.5); RDW Standard Deviation 42.9 fL (36.4-46.3); Red Blood Count 4.04 M/uL (4.20-5.40); White Blood Count 7.66 K/ul (4.8-10.8)
[2024-07-12 06:13] LABS: BUN Creatinine Ratio 14.1 (10-20); Calcium 8.6 mg/dl (8.6-10.3); Creatinine Clr Calc Pharmacy 79.5 ml/min; Magnesium 1.9 mg/dl (1.7-2.4); Phosphorus 2.9 mg/dl (2.5-4.9); Potassium 3.6 mmol/L (3.5-5.1)
--- NOTE | 2024-07-12 10:07 | Pharmacy Report ---
Pharmacy PK ABX Note - Date of Service July 12, 2024 - Assessment and Plan Assessment 07/12: Reviewed vancomycin level, predicting therapeutic AUC/CAROLINA on lower end of goal range, will increase dose slightly for better chance of achieving goal AUC/CAROLINA. WBC improved, blood cultures NG x24 hours. 07/11: 68 year old F receiving ceftriaxone/vancomycin for treatment of cellulitis of lower left extremity. Pertinent microbiologic data includes: blood cultures pending. Day # 2 of antimicrobial therapy. Plan Vancomycin * Loading dose: 1500 mg IV x 1 * Maintenance dose: increase to vancomycin 1250 mg IV every 12 hours * Regimen is predicted to achieve target AUC/CAROLINA of 400-600 mg/L.hr * Random level to be ordered if continued and based on clinical status Pharmacy will continue to follow and will adjust dose/frequency as necessary. Thank you. Pharmacy has transitioned to AUC monitoring for vancomycin. AUC/CAROLINA is the preferred PK/PD target and is associated with decreased risk of nephrotoxicity compared to traditional trough targets.
--- NOTE | 2024-07-12 16:46 | Hospitalist Progress Note ---
Date of Service July 12, 2024 Assessment & Plan (1) Cellulitis of left lower extremity: Plan: 68 yo F with past medical history significant for restrictive lung disease due to kyphoscoliosis, stasis dermatitis of both legs, hypertension, history of benign neoplasm of colon, polymyalgia rheumatica, arthritis of both hips, history of migraine, generalized anxiety disorder presents with redness of the left lower extremity. Patient states last night she noticed redness in the left calf region. It was warm to touch. And has some pain in the left leg. Denies any fevers. Denies any chest pain or shortness of breath. No cough. No runny nose or sore throat. No headache. No abdominal pain. No nausea. Normal bowel and bladder movements. Hemodynamics are okay. Patient says she has history of cellulitis in the past. Cellulitis of left lower extremity Doppler negative for DVT ER empirically started Vanco and Rocephin which will be continued WBC down to 7.6K today, monitor CBC Will monitor for response. 07/12 erythema improved, not painful, not warm, cont. to monitor Hypertension Continue home propranolol - hold lisinopril- HCTZ for now Will monitor Hypokalemia, Hypomagnesemia - replace K and Mag, and monitor DVT prophylaxis Lovenox Disposition Medical floor Full code Admission and Anticipated Discharge Date Admission Date: July 10, 2024 Subjective Pt seen in follow up of LE cellulitis Lying in bed in NAD denies fever, chills, chest pain, shortness of breath leg feels much improved, not painful, not warm, erythema improved Review of Systems Review of Systems: All systems reviewed & are unremarkable except as noted in Subjective Physical Exam Physical Exam: General- WD/WN F in NAD Head- atraumatic Eyes- PERRL. Neck- supple, no JVD. Lungs- clear to auscultation no wheezing or crackles Heart- regular rate and rhythm; no murmur Abdomen- normal bowel sounds, soft, nontender, no distension Extremities- b/l lower extremity chronic skin changes seen. left posterior leg erythematous - now improved, not painful to touch, not warm to palpation - improved Neuro- alert, oriented PERRL, no facial palsy; no dysarthria; moves extremities Results & Data Results & Data Vital Signs (Past 12 Hours) Vital Signs Temp Pulse Resp BP Pulse Ox O2 Del Method 07/12/24 14:06 36.7 C 86 16 120/76 92 Room Air 07/12/24 06:58 36.8 C 86 16 131/75 93 Room Air Laboratory Results 07/12/24 Range/Units 05:25 WBC 7.66 (4.8-10.8) K/ul RBC 4.04 L (4.20-5.40) M/uL Hgb 11.6 L (12.0-16.0) g/dl Hct 36.2 L (37.0-47.0) % MCV 89.6 (80.0-100.0) fL MCH 28.7 (25.0-34.0) pg MCHC 32.0 (32.0-36.0) g/dL RDW Std Deviation 42.9 (36.4-46.3) fL RDW Coeff of Sandra 13.1 (11.5-14.5) % Plt Count 198 (130-400) K/uL MPV 8.7 L (9.4-12.4) fL Sodium 140 (136-145) mmol/L Potassium 3.6 (3.5-5.1) mmol/L Chloride 107 (98-107) mmol/L Carbon Dioxide 27 (21-32) mmol/L Anion Gap 6 (3-11) BUN 10 (6-23) mg/dl Creatinine 0.71 (0.6-1.2) mg/dl Est Cr Clr Drug Dosing 79.5 ml/min eGFR 93.72 BUN/Creatinine Ratio 14.1 (10-20) Glucose 96 (70-99(Fasting)) mg/dl Calcium 8.6 (8.6-10.3) mg/dl Phosphorus 2.9 (2.5-4.9) mg/dl Magnesium 1.9 (1.7-2.4) mg/dl Random Vancomycin 10.0 (10-20) mcg/ml Medications Administered Current Inpatient Medications Acetaminophen (Acetaminophen 325 Mg Tab) 650 mg PO Q4H PRN PRN Reason: pain/fever Stop: 08/10/24 00:52 Last Admin: 07/11/24 07:25 Dose: 650 mg Enoxaparin Sodium (Enoxaparin Inj 40 Mg/0.4 Ml Syr) 40 mg SQ PM KAREN Stop: 08/10/24 00:52 Last Admin: 07/11/24 20:20 Dose: 40 mg Lisinopril/HCTZ (Lisinopril/Hctz 10/12.5mg Tab) 0.5 tab PO DAILY [facility] Stop: 08/10/24 08:59 Ceftriaxone Sodium (Rocephin) 2,000 mg in 50 mls @ 100 mls/hr IV Q24H KAREN Stop: 07/18/24 20:59 Last Infusion: 07/11/24 21:50 Dose: Infused Vancomycin HCl 1,250 mg/ (Sodium Chloride) 275 mls @ 200 mls/hr IV Q12H [facility] Stop: 07/19/24 17:59 Magnesium Oxide (Magnesium Oxide 400 Mg Tab) 400 mg PO QAM [facility] Stop: 08/10/24 08:59 Last Admin: 07/12/24 08:00 Dose: 400 mg Miscellaneous Information (Vancomycin Consult Active) 1 each N/A UD PRN PRN Reason: Consult Stop: 08/09/24 21:39 Polyethylene Glycol (Polyethylene (Miralax) 17 Gm Pack) 17 gm PO DAILY PRN PRN Reason: Constipation Stop: 08/10/24 00:52 Propranolol HCl (Propranolol Hcl 20 Mg Tab) 60 mg PO QAM [facility] Stop: 08/10/24 08:59 Last Admin: 07/12/24 08:00 Dose: 60 mg
[2024-07-12] MEDS: VANCOMYCIN HCL 1,250 MG in SODIUM CHLORIDE 0.9% 250 ML IV SCH (18:01)
[2024-07-12] MEDS: SUMAtriptan succinate 50 MG TAB PO PRN (19:32)
[2024-07-12 21:07] VITALS: RESP 18; O2SAT 96
[2024-07-13 06:39] LABS: Hematocrit (blood only) 35.2 % (37.0-47.0); Hemoglobin 11.8 g/dl (12.0-16.0); Mean Corpuscular Hemoglobin 29.8 pg (25.0-34.0); Mean Corpuscular Hgb Conc 33.5 g/dL (32.0-36.0); Mean Corpuscular Volume 88.9 fL (80.0-100.0); Mean Platelet Volume 8.5 fL (9.4-12.4); Platelet Count 203 K/uL (130-400); RDW Coefficient of Variation 12.9 % (11.5-14.5); RDW Standard Deviation 42.1 fL (36.4-46.3); Red Blood Count 3.96 M/uL (4.20-5.40); White Blood Count 7.45 K/ul (4.8-10.8)
[2024-07-13 07:20] LABS: BUN Creatinine Ratio 14.5 (10-20); Calcium 8.5 mg/dl (8.6-10.3); Creatinine Clr Calc Pharmacy 74.2 ml/min; Magnesium 1.8 mg/dl (1.7-2.4); Phosphorus 3.3 mg/dl (2.5-4.9); Potassium 3.5 mmol/L (3.5-5.1)
[2024-07-13 08:20] VITALS: PULSE 79; TEMP 97.7
[2024-07-13] MEDS: INFLUENZA VACC TS2024-25(65y+)/PF (IIV3) 0.5mL Syr IM ONE (08:58)
--- NOTE | 2024-07-13 12:42 | Discharge Summary ---
Date of Service July 13, 2024 Admission HPI Per Admitting Provider 68-year-old female with past medical history significant for restrictive lung disease due to kyphoscoliosis, stasis dermatitis of both legs, hypertension, history of benign neoplasm of colon, polymyalgia rheumatica, arthritis of both hips, history of migraine, generalized anxiety disorder presents with redness of the left lower extremity. Patient states last night she noticed redness in the left calf region. It was warm to touch. And has some pain in the left leg. Denies any fevers. Denies any chest pain or shortness of breath. No cough. No runny nose or sore throat. No headache. No abdominal pain. No nausea. Normal bowel and bladder movements. Hemodynamics are okay. Patient says she has history of cellulitis in the past. Past medical history. As mentioned above Past surgical history. Colonoscopy. Colonoscopy with biopsy. EGD. Spine surgery. Social history. No smoking. No alcohol use. No drug use. Family history. Paternal grandfather had cancer. Mother had diabetes. Hypertension. Alzheimer's disease. Father had [place]. Hypertension. Brother has hypertension. Sister has diabetes. Sister has hypertension. Admission Exam Per Admitting Provider General- WD/WN F in NAD Head- atraumatic Eyes- PERRL. Neck- supple, no JVD. Lungs- clear to auscultation no wheezing or crackles Heart- regular rate and rhythm; no murmur Abdomen- normal bowel sounds, soft, nontender, no distension Extremities- b/l lower extremity chronic skin changes seen. left posterior leg erythematous and warm to palpation Neuro- alert, oriented PERRL, no facial palsy; no dysarthria; moves extremities Principal Diagnosis LE cellulitis Discharge Exam General- WD/WN F in NAD Head- atraumatic Eyes- PERRL. Neck- supple, no JVD. Lungs- clear to auscultation no wheezing or crackles Heart- regular rate and rhythm; no murmur Abdomen- normal bowel sounds, soft, nontender, no distension Extremities- b/l lower extremity chronic skin changes seen. left posterior leg erythema- now much improved, not painful to touch, not warm to palpation - improved Neuro- alert, oriented PERRL, no facial palsy; no dysarthria; moves extremities Discharge Data Allergies Allergy/AdvReac Type Severity Reaction Status Date / Time No Known Allergies Allergy nka Verified 07/10/24 20:00 Consultations 07/10/24 21:45 ED Decision to Admit Stat Ordered Studies 07/10/24 19:54 US venous doppler LE LT Stat FINDINGS: Deep veins: Unremarkable. No DVT in the visualized common femoral, femoral, proximal deep femoral or popliteal veins. The veins demonstrate normal color flow, are normally compressible, with normal phasic flow and/or augmentation response. Superficial veins: Unremarkable. No thrombus in the visualized great saphenous vein. Soft tissues: No acute findings. IMPRESSION: No evidence of acute DVT. Hospital Course (1) Cellulitis of left lower extremity: 68 yo F with past medical history significant for restrictive lung disease due to kyphoscoliosis, stasis dermatitis of both legs, hypertension, history of benign neoplasm of colon, polymyalgia rheumatica, arthritis of both hips, history of migraine, generalized anxiety disorder presents with redness of the left lower extremity. Patient states last night she noticed redness in the left calf region. It was warm to touch. And has some pain in the left leg. Denies any fevers. Denies any chest pain or shortness of breath. No cough. No runny nose or sore throat. No headache. No abdominal pain. No nausea. Normal bowel and bladder movements. Hemodynamics are okay. Patient says she has history of cellulitis in the past. Cellulitis of left lower extremity Doppler negative for DVT ER empirically started Vanco and Rocephin which was continued while inpt WBC down to 7.6K today, monitor CBC Will monitor for response. 07/12 erythema improved, not painful, not warm, cont. to monitor Hypertension Continue home propranolol - hold lisinopril- HCTZ for now Will monitor Hypokalemia, Hypomagnesemia - replaced K and Mag, and monitor Total Time Total Time Spent Total Time Spent (In Minutes): 40 Discharge Plan Discharge Items Patient Disposition: Home - Self-Care Reason For Visit: LEFT LEG CELLULITIS Discharge Diagnosis: left LE cellulitis Condition on Discharge: Good Activity: Per Instructions section Non-emergency contact: Primary Care Provider Call non-emergency contact if: you have any medication questions and your symptoms worsen Follow-up/Referrals: Lori Cristina MD [Primary Care Provider] - Diet: Heart Healthy Diet Texture: Easy to Chew Addtl Attending Provider Instructions: Follow up with your primary care doctor within 1 week. Finish antibiotic course as prescribed. For now, do not take lisinopril - HCTZ, and monitor your blood pressure at home if you can. Discuss with your primary care doctor if/when you can resume this medication. Pending Studies at Discharge: No Stand-Alone Forms: [facility], Smoking Cessation Medications and DC Order Prescriptions: New cephalexin 500 mg capsule 500 mg PO QID 6 Days Qty: 24 0RF Continued sumatriptan succinate 50 mg tablet 50 mg PO .SEEATTACHED PRN (Reason: Migraine Headache) propranolol 60 mg tablet 60 mg PO QAM acetaminophen [Tylenol Arthritis] 650 mg Tablet Extended Release 650 mg PO Q12H PRN (Reason: Pain) Held lisinopril-hydrochlorothiazide 10-12.5 mg tablet 0.5 tab PO DAILY Hold Instructions: Resume on 07/20/24. until seen by your primary care doctor Discharge Orders: Discharge Order (Routine); Ordered 07/13/24 Ordered By: Mitchel Dove/Other Patient Handouts: Cellulitis Dc Admission Data Admit Date/Time: 07/10/24 23:40 Attending Provider: Mitchel Jimenez Admit Provider: Maksim Zelaya Primary Care Provider: Lori Cristina Other Providers: Maksim Zelaya
[2024-07-13] MEDS: POTASSIUM CHLORIDE CRTAB 20 MEQ TABCR PO STA (13:02)
[2024-07-13 13:33] VITALS: BP 120/76
== END 2024-07-13 14:50 | disposition home or self-care (01) | DRG 603 ==
LOC: ED 19:37 → 3W 23:40